=== PATIENT | male | born 1985 | race Caucasian/White ===

== ENCOUNTER 2019-12-30 13:40 | Emergency (ER) | payer MEDICAID ==
[2019-12-30 13:49] VITALS: BP 137/101
== END 2019-12-30 14:35 | disposition left against medical advice (07) ==
LOC: EDBD 13:40 → ED 13:40
DX: T40.4X1A Poisoning by other synthetic narcotics, accidental (unintentional), initial encounter (principal); F17.210 Nicotine dependence, cigarettes, uncomplicated; Y92.89 Other specified places as the place of occurrence of the external cause
CPT/HCPCS: 83880; 99406; G0480; J7030; Q0092